=== PATIENT | male | born 1970 | race Caucasian/White ===

== ENCOUNTER 2019-09-13 18:32 | Emergency (ER) | payer BC ==
[~2019-09-13] VITALS: Ht 177.8 cm; Wt 81.6 kg
[2019-09-13 18:40] VITALS: BP 131/78
[2019-09-13] MEDS ORDERED: DEXAMETHASONE SOD PHOS 20 MG/5 ML VIAL. IM ONE (19:00)
[2019-09-13] MEDS ORDERED: LIDOCAINE 2% VISCOUS 15 ML SOLUTION. SWSW ONE (19:00)
--- NOTE | 2019-09-13 19:03 | PHYS DOC ---
Adult General Chief Complaint Chief Complaint: SHORTNESS OF BREATH HPI HPI Pt is a 49 y/o male with a history for a trach in place who presents to the ED with throat pain after eating turkey which then got stuck in his throat. He states he did not swallow a turkey bone. Denies any current SOB. Reports sy mptoms have since resolved. Denies any bones in turkey meat that he swallowed. Reports he has suctioned his trach prior to arrival. Also reports history of recent vocal cord biopsy in the last 2 weeks. Review of Systems Review of Systems Constitutional: Denies fever or chills Eyes: Denies redness or eye pain HENT: Reports Trach tube in place Respiratory: Reports shortness of breath- now resolved. Denies hemoptysis Cardiovascular: Denies chest pain or palpitations GI: Denies abdominal pain, nausea, or vomiting Neurologic: Denies headache, focal weakness or sensory changes Complete systems were reviewed and found to be within normal limits, except as documented in this note. Current Medications Current Medications Current Medications Medications (Trade) Dose Ordered Sig/[place] Start Time Stop Time Status Last Admin Dose Admin Dexamethasone Sodium Phosphate (Decadron) 20 mg 1X ONCE 09/13/19 19:00 09/13/19 19:05 DC Lidocaine HCl (Viscous Lidocaine) 15 ml 1X ONCE 09/13/19 19:00 09/13/19 19:05 DC Allergies Allergies Allergies Coded Allergies Type Severity Reaction Last Updated Verified No Known Drug Allergies 09/13/19 No Physical Exam Physical Exam Constitutional: Well developed, well nourished, no acute distress, non-toxic appearance HENT: Normocephalic, atraumatic, oropharynx moist Eyes: PERRL, EOMI, conjunctiva normal, no discharge Neck: Trach tube in place w/ scant mucous noted, no respiratory distress Cardiovascular: Heart rate normal, regular rhythm Lungs & Thorax: Bilateral breath sounds w/ scant wheeze and upper airway sounds Skin: Warm, dry, no erythema, no rash Extremities: No tenderness, ROM intact, no edema Neurologic: Alert and oriented X 3, no focal deficits noted Psychologic: Affect normal, judgement normal Current Patient Data Vital Signs Vital Signs Date Time Temp Pulse Resp B/P (MAP) Pulse Ox O2 Delivery O2 Flow Rate FiO2 09/13/19 18:40 98.6 95 18 131/78 (95) 95 Room Air 98.6 EKG EKG [] Radiology/Procedures Radiology/Procedures PROCEDURE: CHEST PA & LATERAL PA and lateral chest x-ray HISTORY: Shortness of breath. FINDINGS: Tracheostomy. Heart size normal. Aortic arch calcified plaque. Hyperexpansion the lungs with flattening of diaphragms likely indicating air-trapping. No pneumothorax, pulmonary opacities or pleural effusions. Bones are unremarkable. IMPRESSION: Hyperinflation of the lungs suggesting air trapping perhaps from asthma or COPD. Electronically signed by: Yemi Manley MD (09/13/2019 7:00 PM) [facility] Course & Med Decision Making Course & Med Decision Making Patient is a 49 y/o male with a trach tube in place who presents with throat pain after eating some turkey. Hx of recent vocal cord biopsy. He currently denies SOB. Order viscous lidocaine, IM steroid, and have respiratory team come clean tracheotomy tube. Patient declines and reports symptoms have since resolved. CXR without acute process. Patient stable for discharge with outpatient follow-up with PCP. Discussed findings and plan with patient, who acknowledges understanding and agreement. Dragon Disclaimer Dragon Disclaimer This electronic medical record was generated, in whole or in part, using a voice recognition dictation system. Departure Departure Impression: Primary Impression: Sensation of foreign body in throat Disposition: 01 HOME, SELF-CARE Condition: IMPROVED Patient Instructions: Aspiration Pneumonia, Care of a Tracheostomy Tube, [id number] Additional Instructions: Your sensation today likely was exacerbated by your recent vocal cord biopsy. Symptoms have resolved so likely you did not fully aspirate the food. Please follow closely with your doctor for further evaluation. You have been given information about aspiration pneumonia to look for signs if it were to develop. LIBIA MARTINEZ DO Sep 13, 2019 19:03
== END 2019-09-13 19:19 | disposition home or self-care (01) ==
LOC: ER 18:32
DX: T17.228A Food in pharynx causing other injury, initial encounter (principal); R07.0 Pain in throat; X58.XXXA Exposure to other specified factors, initial encounter; Y93.89 Activity, other specified; Y92.89 Other specified places as the place of occurrence of the external cause; Y99.8 Other external cause status
CPT/HCPCS: 71046; 96372; 99284